=== PATIENT | male | born 1935 | race Hispanic/Latino ===

== ENCOUNTER → 2018-07-26 | Day surgery (SDC) | payer MEDICARE ==
[2018-07-25 10:33] LABS: BASOPHILS % 0.5 % (0.0-1.0); EOSINOPHILS # (AUTO) 0.2 (0.0-0.4); EOSINOPHILS % 3.6 % (0.0-6.0); HEMATOCRIT 26.7 % (38.2-49.6); HEMOGLOBIN 8.6 g/dL (14.0-18.0); LYMPHOCYTES # (AUTO) 1.9 (1.0-3.2); LYMPHOCYTES % 30.2 % (18.0-39.1); MEAN CORPUSCULAR HEMOGLOBIN 29.2 pg (28-32); MEAN CORPUSCULAR HGB CONC 32.2 g/dL (31-35); MEAN CORPUSCULAR VOLUME 90.5 fL (81-99); MONOCYTES # (AUTO) 0.7 (0.2-0.8); MONOCYTES % 10.6 % (4.4-11.3); NEUTROPHILS # (AUTO) 3.3 (2.1-6.9); NEUTROPHILS % 53.8 % (38.7-80.0); PLATELET COUNT 290 x10e3/uL (140-360); RED BLOOD COUNT 2.95 x10e6/uL (4.3-5.7); RED CELL DISTRIBUTION WIDTH 13.6 % (11.7-14.4)
[2018-07-25 10:48] LABS: INR 0.99
[2018-07-25 10:58] LABS: ALBUMIN 3.9 g/dL (3.5-5.0); ANION GAP 12.6 mmol/L (8-16); CALCIUM 9.3 mg/dL (8.4-10.2); CREATININE, SERUM 1.48 mg/dL (0.72-1.25); POTASSIUM 4.6 mmol/L (3.5-5.1)
--- NOTE | 2018-07-25 12:03 | Diagnostic Imaging Report ---
PROCEDURE: Frontal and lateral views of the chest. COMPARISON: None. INDICATIONS: PREOPERATIVE CHEST XRAY FOR HEART CATH FINDINGS: Lines/tubes: None. Lungs: Moderate lung volumes. There is no evidence of pneumonia or pulmonary edema. Mild patchy bibasilar opacities, likely atelectasis. Pleura: There is no pleural effusion or pneumothorax. Heart and mediastinum: Cardiomediastinal silhouette is unremarkable. Bones: No acute bony abnormality. Degenerative changes of the visualized spine. IMPRESSION: No acute radiographic abnormality. Dictated by: KIANNA GUERRERO M.D. on 07/25/2018 at 12:12 Electronically approved by: KIANNA GUERRERO M.D. on 07/25/2018 at 12:12
[2018-07-26] VITALS (10 sets, daily range): BP systolic 98–178; BP diastolic 61–97
[~2018-07-26] VITALS: Ht 165.1 cm; Wt 74.8 kg
[~2018-07-26] MED LIST: ASPIRIN81 MG PO; BYSTOLIC10 MG PO; CLOPIDOGREL75 MG PO; FENTANYL CITRATE/PF 100MCG/2 ML INJ ONE; FERROUS GLUCON240 MG; HEPARIN SOD/SOD CHLORIDE 1,000 ML ONE; HEPARIN SOD/SOD CHLORIDE 2,000 ML ONE; IOPAMIDOL 370 MG/ML 200 ML INFUS..BTL INJ ONE; ISOSORBIDE MONO30 MG PO; LIDOCAINE HCL 1% LOCAL INJ 20 ML VIAL ONE; LISINOPRIL10 MG PO; MIDAZOLAM HCL 2 MG/2 ML VIAL ONE; NITROGLYCERIN0.4 MG SL; OMEPRAZOLE40 MG; SODIUM CHLORIDE 0.9% 1000ML 1,000 ML ONE; SODIUM CHLORIDE 0.9% 500ML 500 ML ONE
--- OUTSIDE RECORDS SUMMARY | 2018-07-26 06:09 | XMS REPORT ---
[facility] Address Unknown Phone Unavailable Care Team Providers Care Home Improvement Installer Name Role Phone DEMARCO ADAM Unavailable Unavailable Problems This patient has no known problems. Allergies, Adverse Reactions, Alerts This patient has no known allergies or adverse reactions. Medications This patient has no known medications. Results Test Description Test Time Test Comments Text Results Atomic Results Result Comments CHEST 2 VIEWS 2018-07-25 12:12:00 [place] [address] Patient Name: JUAN M ANAND MR #: [id number] : 1935 Age/Sex: 82/M Req #: [id number] Adm Physician: Ordered by: DEMARCO ADAM MD Report #: [id number] Location: CORE MANAGER Room/Bed: Procedure: [id number] DX/CHEST 2 VIEWS Exam Date: 07/25/18 Exam Time: 1045 REPORT STATUS: Signed PROCEDURE: Frontal and lateral views of the chest. CO MPARISON: None. INDICATIONS: PREOPERATIVE CHEST XRAY FOR HEART CATH FINDINGS: Lines/tubes: None. Lungs: Moderate lung volumes. There is no evidence of pneumonia or pulmonary edema. Mild patchy bibasilar opacities, likely atelectasis. Pleura: There is no pleural effusion or pneumothorax. Heart and mediastinum: Cardiomediastinal silhouette is unremarkable. Bones: No acute bony abnormality. Degenerative changes of the visualized spine. IMPRESSION: No acute radiographic abnormality. Dictated by: KIANNA GUERRERO M.D. on 07/25/2018 at 12:12 Electronically approved by: KIANNA GUERRERO M.D. on 07/25/2018 at 12:12 Dictated By: KIANNA GUERRERO MD 1212 Transcribed By: RAFI on 07/25/181211 COPY TO: DEMARCO ADAM MD
--- OUTSIDE RECORDS SUMMARY | 2018-07-26 06:09 | XMS REPORT | Summary of Care ---
Author Author [facility] [place] Address Unknown Phone Unavailable Encounter HQ Ryancleopatraalize_clement(FIN) [id number] Date(s): 12/10/17 - 12/10/17 [facility] [place] [address] [place] [address] 7 [phone] Encounter Diagnosis Asymptomatic microscopic hematuria (Final) - 12/16/17 Cyst of kidney, acquired (Final) - Benign prostatic hyperplasia without lower urinary tract symptoms (Final) - Discharge Disposition: Home or Self Care Attending Physician: Dean Steve MD Vital Signs No data available for this section Problem List No data available for this section Allergies, Adverse Reactions, Alerts No data available for this section Medications No data available for this section Results No data available for this section Immunizations No data available for this section Procedures No data available for this section Social History No data available for this section Assessment and Plan No data available for this section
--- OUTSIDE RECORDS SUMMARY | 2018-07-26 06:09 | XMS REPORT | Summary of Care ---
Author Author [facility] Organization [facility] Address Unknown Phone Unavailable Encounter HQ Ryancleopatrar_clement(YONATHAN) [id number] Date(s): 06/11/17 - 06/11/17 [facility] [address] [place] [address]- Discharge Disposition: Home or Self Care Attending Physician: Dean Steve MD Referring Physician: Dean Steve MD Vital Signs No [...]
--- OUTSIDE RECORDS SUMMARY | 2018-07-26 06:09 | XMS REPORT | Continuity of Care Document ---
Author Author [facility] Address Unknown Phone Unavailable Problems Problem Status Onset Date Classification Date Reported Comments Source Asymptomatic microscopic hematuria 12/17/2017 03/18/2018 [facility] [place] M25.562 - PAIN IN LEFT KNEE Active 06/11/2017 [facility] [place] DX: M25.562=PAIN IN LEFT KNEE/M79.662=PA Active 06/11/2017 [place] Cyst of kidney, acquired 03/18/2018 [facility] [place] Benign prostatic hyperplasia without lower urinary tract symptoms 03/18/2018 [facility] [place] PAIN IN LEFT KNEE Active [facility] Medications Medication Details Route Status Patient Instructions Ordering Provider Order Date Source Allergies, Adverse Reactions, Alerts Substance Category Reaction Severity Reaction type Status Date Reported Comments Source Immunizations Immunization Date Given Site Status Last Updated Comments Source Results Order Name Results Value Reference Range Date Interpretation Comments Source Retroperitoneal Complete US Retroperitoneal Complete US EXAM: US RENAL DATE: 12/10/2017 10:44 AM CDT INDICATION: R31.21 Asymptomatic microscopic hematuria COMPARISON: None. TECHNIQUE: Multiplanar grayscale and color Doppler ultrasound of the kidneys and urinary bladder. FINDINGS: Right kidney: Hydronephrosis: None. Size: 9.9 x 5.3 x 4.1 cm. Echogenicity: Normal. Calculi: None. Cysts: None. Masses: None. Left kidney: Hydronephrosis: None. Size: 9.1 x 4.3 x 4.3 cm. Echogenicity: Normal. Calculi: None. Cysts: Subcentimeter exophytic cyst Masses: None. Bladder: Normal. Prostate: Measures approximately 3.8 x 4.0 x 4.6 cm and is moderately heterogeneous. Aorta and IVC: Unremarkable. IMPRESSION: Prostatomegaly. Otherwise no significant abnormality. 12/10/2017 - - Read by: Debbie Mcdaniel Dictated Date/time: 12/10/17 16:34 Electronically Signed by: Debbie Mcdaniel 12/10/17 16:36 FINAL REPORT [facility] Ext Lower Venous Doppler Unilat US Ext Lower Venous Doppler Unilat US Patient Name: JUAN M ANAND : 1935; Age: 81 years y/o Male MR: [id number] Study: Ext Lower Venous Doppler Unilat US 06/11/2017 2:43 PM CDT Ordering Physician: Dean Steve MD Clinical Indication: - left leg pain; Comparison: None Left lower extremity venous Doppler ultrasound exam Normal flow and compressibility of the common femoral, superficial femoral, and popliteal venous segments. Normal distal augmentation. There is a 1.7 x 1.2 cm complex mass in the left popliteal fossa, likely a complex Harris's cyst. IMPRESSION: No evidence for left lower extremity deep vein thrombosis. SL: [id number] 06/11/2017 - - Read by: Richard Bernal MD Dictated Date/time: 06/11/17 16:34 Electronically Signed by: Richard Bernal MD 06/11/17 16:35 FINAL REPORT [facility] Knee 1-2 Views unilateral DX Knee 1-2 Views unilateral DX CLINICAL HISTORY: - left leg pain AGE: 81 years GENDER: Male TECHNIQUE: Left knee radiographs, 2 views. COMPARISON: None FINDINGS: There is no evidence of fracture or dislocation. Osseous mineralization is within normal limits. No lytic or blastic lesions are seen. Severe joint space narrowing is seen in the medial tibiofemoral compartment with subchondral sclerosis. Mild osteophyte formation is seen in the medial tibiofemoral and patellofemoral compartments subchondral sclerosis in the patellofemoral compartment... Small knee joint effusion. 6 mm ossific loose body in the posterior intercondylar notch.. 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 6 mm ossific loose body in the posterior intercondylar notch. Small knee joint effusion. 06/11/2017 - - Read by: Vasiliy Rojas MD Dictated Date/time: 06/11/17 12:54 Electronically Signed by: Vasiliy Rojas MD 06/11/17 12:56 FINAL REPORT [facility] Vital Signs Vital Sign Value Date Comments Source Encounters Location Location Details Encounter Type Encounter Number Reason For Visit Attending Provider ADM Date DC Date Status Source [facility] [place] Out[facility] Di[facility] Services [id number] Souheil Steve 06/11/2017 06/12/2017 [facility] Out[facility] [id number] Souheil Steve 06/11/2017 06/12/2017 [facility] - [place] Outpt Diag Services [id number] Souheil Steve 12/10/2017 12/11/2017 [facility] Procedures Procedure Code Date Perfomer Comments Source
--- OUTSIDE RECORDS SUMMARY | 2018-07-26 06:09 | XMS REPORT | Summary of Care ---
Author Author [facility] [place] Organization [facility] [place] Address Unknown Phone Unavailable Encounter HQ Willier_clement(YONATHAN) [id number] Date(s): 06/11/17 - 06/11/17 [facility] [place] [address] [place] [phone] Discharge Disposition: Home or Self Care Attending [...]
--- NOTE | 2018-07-26 09:48 | Operative Report ---
DATE OF PROCEDURE: July 26, 2018 PROCEDURES PERFORMED 1. Left heart catheterization. 2. Selective coronary angiogram. 3. Left ventriculogram. 4. Intra-aortic balloon placement. INDICATIONS: Chest pain, abnormal stress test. ANESTHESIA: Lidocaine 2% for local anesthesia, fentanyl and Versed for conscious sedation. BLOOD LOSS: 3 mL. DESCRIPTION OF PROCEDURE: After informed consent, the patient was brought to the cardiac catheterization laboratory and placed on the table. Both groins were painted and draped in a sterile fashion. Lidocaine was injected in the right groin for local anesthesia. The right femoral artery was accessed by Seldinger technique and a 5-Tajik sheath was placed in the right femoral artery. The left main artery was cannulated using a JL4.5-Tajik catheter. Coronary angiogram was performed. The images were obtained in multiple views. The right coronary artery was cannulated using a 3DRC 5-Tajik catheter. Coronary angiogram was performed and images were obtained in multiple views. LV gram was performed using a pigtail catheter. Patient had severe left main stenosis. So, it was decided to place an intra-aortic balloon pump. The 5-Tajik sheath was exchanged for a 7-Tajik sheath over a guidewire. Intra-aortic balloon was advanced through the sheath and placed distal to the subclavian artery. The balloon was connected to the console and good inflations were noted. The patient tolerated the procedure without any complications. REPORT LEFT MAIN: Normal caliber with 99% distal lesion. LEFT ANTERIOR DESCENDING: The proximal LAD is of normal caliber. The mid and distal LAD tapers off and has diffuse luminal irregularities. LEFT CIRCUMFLEX: It is of narrow caliber and has diffuse luminal irregularities. RIGHT CORONARY ARTERY: It is of normal caliber, dominant vessel, with20% to 30% mid lesion. LV-GRAM: Hypercontractile left ventricle. Overall ejection fraction is 65% to 70%. HEMODYNAMICS: Aortic pressure is 132/56, LV pressure 134/22, LVEDP is 30. PLAN: CABG. Job#: [id number]
== END | disposition other institution (70) ==
LOC: CATH LAB 06:06
DX: I25.10 Atherosclerotic heart disease of native coronary artery without angina pectoris (principal); R07.9 Chest pain, unspecified; R94.39 Abnormal result of other cardiovascular function study; Z01.810 Encounter for preprocedural cardiovascular examination; Z01.812 Encounter for preprocedural laboratory examination; Z01.811 Encounter for preprocedural respiratory examination
CPT/HCPCS: 33967; 36415; 71046; 80053; 85025; 85610; 85730; 93005; 93458; J2001; J2250; J7030; J7040; Q9967; 33970; C1766; C2630

== ENCOUNTER 2019-02-08 17:05 | Observation (INO) | payer MEDICARE ==
[~2019-02-08] VITALS: Ht 165.1 cm; Wt 80.3 kg
[~2019-02-08 17:05] MED LIST changes: +AMIODARONE HCL200 MG; +ATORVASTATIN CA20 MG PO; -FENTANYL CITRATE/PF 100MCG/2 ML INJ ONE; -FERROUS GLUCON240 MG; +FERROUS GLUCON240 MG PO; +FUROSEMIDE40 MG PO; -HEPARIN SOD/SOD CHLORIDE 1,000 ML ONE; -HEPARIN SOD/SOD CHLORIDE 2,000 ML ONE; -IOPAMIDOL 370 MG/ML 200 ML INFUS..BTL INJ ONE; +IRON; -LIDOCAINE HCL 1% LOCAL INJ 20 ML VIAL ONE; +METOPROLOL PO; -MIDAZOLAM HCL 2 MG/2 ML VIAL ONE; -OMEPRAZOLE40 MG; +OMEPRAZOLE40 MG PO; -SODIUM CHLORIDE 0.9% 1000ML 1,000 ML ONE; -SODIUM CHLORIDE 0.9% 500ML 500 ML ONE; +VITAMIN D400 UNIT PO
[2019-02-08 22:03] LABS: BASOPHILS % 0.5 % (0.0-1.0); EOSINOPHILS # (AUTO) 0.3 (0.0-0.4); EOSINOPHILS % 3.8 % (0.0-6.0); HEMATOCRIT 27.7 % (38.2-49.6); HEMOGLOBIN 8.8 g/dL (14.0-18.0); LYMPHOCYTES # (AUTO) 2.6 (1.0-3.2); LYMPHOCYTES % 38.9 % (18.0-39.1); MEAN CORPUSCULAR HEMOGLOBIN 26.5 pg (28-32); MEAN CORPUSCULAR HGB CONC 31.8 g/dL (31-35); MEAN CORPUSCULAR VOLUME 83.4 fL (81-99); MONOCYTES # (AUTO) 0.6 (0.2-0.8); MONOCYTES % 8.6 % (4.4-11.3); NEUTROPHILS # (AUTO) 3.2 (2.1-6.9); NEUTROPHILS % 47.6 % (38.7-80.0); PLATELET COUNT 210 x10e3/uL (140-360); RED BLOOD COUNT 3.32 x10e6/uL (4.3-5.7)
[2019-02-08 22:25] LABS: CALCIUM 10.4 mg/dL (8.4-10.2); CREATININE, SERUM 2.28 mg/dL (0.72-1.25)
[2019-02-08 22:55] LABS: INR 0.95; PROTHROMBIN TIME 13.2 seconds (11.9-14.5)
[2019-02-08 22:56] LABS: PARTIAL THROMBOPLASTIN TIME 27.2 seconds (23.8-35.5)
[2019-02-09] MEDS ORDERED: PANTOPRAZOLE 40 MG 10ML VIAL IV ONE (00:30)
[2019-02-09] MEDS: SODIUM CHLORIDE 0.9% 1000ML 1,000 ML IV SCH ×2 (00:46→20:07)
[2019-02-09 00:55] LABS: HEMOGLOBIN 7.4 g/dL (14.0-18.0)
[2019-02-09] MEDS ORDERED: SODIUM CHLORIDE 0.9% 250ML 250 ML IV ONE (01:00)
--- NOTE | 2019-02-09 01:11 | NUR ---
spoke to dr joshi regarding patients drop in hemoglobin to 7.4 and hematocrit of 23, informed md that patients blood antibody screen came back positive and is being sent to [facility], informed of protonix administration, asked md if she wished to add any new orders, md stated no furthe orders at this time.
--- NOTE | 2019-02-09 01:16 | NUR ---
informed walt -warehouse laborer- of blood orders. walt stated the blood is currently being processed
[2019-02-09 05:51] LABS: HEMATOCRIT 20.4 % (38.2-49.6)
[2019-02-09 05:53] LABS: HEMOGLOBIN 6.5 g/dL (14.0-18.0)
--- NOTE | 2019-02-09 06:09 | NUR ---
H&P cc; BRBPR HPI: 83yoM, PCP pt does not recall, with hx GIB, developed weakness, found to have severe anemia. Pt admits to having rectal bleeding for over 2 weeks; managed by his PCP. unknown if hemorrhoids. 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
--- NOTE | 2019-02-09 06:36 | NUR ---
dr leland root at 0607 and 06, responded at 06, informed her of hemoglobin of 6.5 and hematocrit of 20.4, informed her rosette from lab informed me blood is in route from [facility], informed of vital signs, patient is in no distress. no further orders at this time, give blood as soon as it arrives to facility
[2019-02-09] MEDS ORDERED: FUROSEMIDE INJ 10 MG/ML 2 ML VIAL IV PRN (07:00)
[2019-02-09] MEDS ORDERED: SODIUM CHLORIDE 0.9% 250ML 250 ML IV NR (07:00)
--- NOTE | 2019-02-09 07:07 | NUR ---
report given in full to dino begum
[2019-02-09] MEDS: AMIODARONE HCL 200 MG TAB PO SCH (08:53)
[2019-02-09] MEDS: ISOSORBIDE MONONITRATE 30 MG TAB CR PO SCH (09:36)
[2019-02-09 12:45] LABS: HEMATOCRIT 23.7 % (38.2-49.6); HEMOGLOBIN 7.7 g/dL (14.0-18.0)
--- NOTE | 2019-02-09 15:11 | NUR ---
Received patient from PACU via stretcher. Accompanied by . AAOX3 to time, person, place. Respirations even and unlabored. Tele #[phone] 1st degree block.Denies pain. Oriented patient and to room. Instructed to use call light for assistance. Voiced understanding. Will continue to monitor.
[2019-02-09 15:24] VITALS: BP 144/65
[2019-02-09] MEDS ORDERED: VITAMIN C500 M1 PO (15:28)
[2019-02-09 15:36] VITALS: BP 144/65
--- NOTE | 2019-02-09 15:51 | NUR ---
aware patient received 1 unit PRBC before going to procedure. HGB 7.7 at noon. Per give second unit of PRBC. Aware of med rec to be reviewed.
[2019-02-09 16:26] VITALS: BP 144/65
--- NOTE | 2019-02-09 19:02 | NUR ---
Report given to oncoming nurse of patient's status. at bedside. No s/s of acute distress noted.
--- NOTE | 2019-02-09 19:10 | NUR ---
pt received. pt assessed. no ss of distress noted. no co pain at time. tele in place. blood transfusing at time. right forearm swollen. iv dc'd catheter tip intact, drsg applied to site. will cont to follow poc. call kiser within reach.
[2019-02-09] MEDS ORDERED: PROPOFOL IV EMULSION 10 MG/ML 50 ML VIAL ONE (19:24)
--- NOTE | 2019-02-09 19:36 | NUR ---
blood transfusion complete. no ss of distress or reaction noted. call kiser within reach.
[2019-02-09 20:00] VITALS: BP 130/63
[2019-02-09] MEDS ORDERED: ATORVASTATIN 20 MG TAB PO SCH (21:00)
--- NOTE | 2019-02-09 23:30 | NUR ---
blood drawn and sent to lab at time per orders. pt tolerated well. call kiser within reach.
[2019-02-09 23:41] LABS: HEMATOCRIT 25.6 % (38.2-49.6); HEMOGLOBIN 8.1 g/dL (14.0-18.0)
[2019-02-10] VITALS: BP 125/60
[2019-02-10] MEDS: SODIUM CHLORIDE 0.9% 1000ML 1,000 ML IV SCH (02:47)
[2019-02-10 04:00] VITALS: BP 108/69
--- NOTE | 2019-02-10 04:15 | NUR ---
pt resting. no ss of distress noted. call kiser within reach.
[2019-02-10 05:23] LABS: HEMATOCRIT 24.5 % (38.2-49.6); HEMOGLOBIN 8.1 g/dL (14.0-18.0)
[2019-02-10 08:00] VITALS: BP 114/57
[2019-02-10 08:14] VITALS: BP 114/57
[2019-02-10] MEDS: AMIODARONE HCL 200 MG TAB PO SCH (09:00)
[2019-02-10] MEDS ORDERED: PANTOPRAZOLE 40 MG 10ML VIAL IV SCH (09:00)
[2019-02-10] MEDS: ISOSORBIDE MONONITRATE 30 MG TAB CR PO SCH (09:00)
[2019-02-10 09:15] VITALS: BP 114/57
--- NOTE | 2019-02-10 10:18 | Consultation ---
DATE OF CONSULTATION: 02/09/2019 CHIEF COMPLAINT: GI bleeding. HISTORY OF PRESENT ILLNESS: Very pleasant 83-year-old man, comes with anemia. Hemoglobin was 7 and blood in stool. He is here for colonoscopy and EGD. PAST MEDICAL HISTORY: See old records. FAMILY HISTORY: Noncontributory. MEDICATIONS: See list. ALLERGIES: NONE SIGNIFICANT. SOCIAL HISTORY: Lives at home. He is retired. No toxic habits. PHYSICAL EXAMINATION: VITAL SIGNS: Blood pressure 140/80, pulse 70, and temperature 98. GENERAL: Elderly man. He looks pale. HEART: Regular rate. LUNGS: Clear. ABDOMEN: Soft, nontender. EXTREMITIES: No edema. ASESSMENT AND PLAN: Gastrointestinal bleed, chronic. The patient is getting transfused, schedule colonoscopy and esophagogastroduodenoscopy today. MD EMEKA HubbardO/MODL /[id number]
--- NOTE | 2019-02-10 10:52 | NUR ---
Discharge summary: Principal dX: Severe anemia Dehydration Hypercalcemia Internal hemorrhoids gastritis Hiatal hernia Secondary Dx: Hx GIB CKD3 Hypercalcemia Obesity BMI 30 PAF HLD Systolic murmur FOrmer smoker PLAN blood transfusion IV ppi; gi consult ferrous sulfate scd/ppi dispo; f/u gi recs endoscopy revealed large hemorrhoids, gastritis, HH.; pt can be safely d/c home with f/u. avoid asa or blood thinners. Pt actually has CKD3 as seen in 2018. d/c home f/u pcp 1 week and GI 2 weeks stable d/c>35mins Dav Little MD, PhD.
[2019-02-10 11:08] LABS: BASOPHILS % 0.3 % (0.0-1.0); EOSINOPHILS # (AUTO) 0.3 (0.0-0.4); EOSINOPHILS % 3.9 % (0.0-6.0); HEMATOCRIT 28.7 % (38.2-49.6); HEMOGLOBIN 9.3 g/dL (14.0-18.0); LYMPHOCYTES # (AUTO) 1.3 (1.0-3.2); LYMPHOCYTES % 18.2 % (18.0-39.1); MEAN CORPUSCULAR HEMOGLOBIN 26.6 pg (28-32); MEAN CORPUSCULAR HGB CONC 32.4 g/dL (31-35); MEAN CORPUSCULAR VOLUME 82.2 fL (81-99); MONOCYTES # (AUTO) 0.6 (0.2-0.8); MONOCYTES % 9.2 % (4.4-11.3); NEUTROPHILS # (AUTO) 4.7 (2.1-6.9); NEUTROPHILS % 67.8 % (38.7-80.0); PLATELET COUNT 197 x10e3/uL (140-360); RED BLOOD COUNT 3.49 x10e6/uL (4.3-5.7); RED CELL DISTRIBUTION WIDTH 23.1 % (11.7-14.4)
[2019-02-10 11:22] LABS: ANION GAP 12.5 mmol/L (8-16); CALCIUM 9.4 mg/dL (8.4-10.2); CREATININE, SERUM 1.76 mg/dL (0.72-1.25); POTASSIUM 4.5 mmol/L (3.5-5.1)
--- NOTE | 2019-02-10 11:54 | NUR ---
PAGED DR ORTIZ AND NOTIFIED LAB REPORT HE SAID HE COMING TO SEE THE PT
[2019-02-10 12:31] VITALS: BP 146/65
[2019-02-10] MEDS ORDERED: ANUSOL-HC25 MG RC (13:42)
[2019-02-10] MEDS ORDERED: PANTOPRAZOLE SO40 MG PO (13:42)
[2019-02-10] MEDS ORDERED: SENNA LAXATIVE8.6 MG PO (13:43)
--- NOTE | 2019-02-10 14:47 | NUR ---
PT WENT HOME IN SAFE CONDITION WITH HIS
== END 2019-02-10 14:47 | disposition home or self-care (01) ==
LOC: ER 17:05 → ERHOLD 02-09 00:15 → INTOOBSV 02-09 00:15 → MED/SURG2 02-09 14:19
PROVIDERS: ADMIT Internal Medicine; ATTEND Internal Medicine
DX: K92.1 Melena (principal); D62 Acute posthemorrhagic anemia; I50.9 Heart failure, unspecified; E78.5 Hyperlipidemia, unspecified; I25.10 Atherosclerotic heart disease of native coronary artery without angina pectoris; Z95.1 Presence of aortocoronary bypass graft; Z82.49 Family history of ischemic heart disease and other diseases of the circulatory system; Z96.651 Presence of right artificial knee joint; K57.30 Diverticulosis of large intestine without perforation or abscess without bleeding; K64.8 Other hemorrhoids; Z87.891 Personal history of nicotine dependence; N17.9 Acute kidney failure, unspecified; E83.52 Hypercalcemia; E66.9 Obesity, unspecified; Z68.30 Body mass index [BMI] 30.0-30.9, adult; K29.70 Gastritis, unspecified, without bleeding; K44.9 Diaphragmatic hernia without obstruction or gangrene; I13.0 Hypertensive heart and chronic kidney disease with heart failure and stage 1 through stage 4 chronic kidney disease, or unspecified chronic kidney disease; N18.3 Chronic kidney disease, stage 3 (moderate)
CPT/HCPCS: 36415 ×3; 36430; 43239; 45378; 80048; 80053; 85014 ×2; 85018 ×2; 85025 ×2; 85610; 85730; 86850; 86870; 86880; 86900; 86905; 86920; 86922; 88305; 88312; 93005; 96374; 96376; 99001; C9113 ×2; G0378 ×2; J1940; J2704; J7030; J7050; P9016

== ENCOUNTER 2021-07-17 11:16 | Emergency (ER) | payer MEDICARE ==
[~2021-07-17] VITALS: Ht 165.1 cm; Wt 80.3 kg
[~2021-07-17 11:16] MED LIST changes: +ANUSOL-HC25 MG RC; +PANTOPRAZOLE SO40 MG PO; +SENNA LAXATIVE8.6 MG PO; +VITAMIN C500 M1 PO
[2021-07-17 12:00] LABS: BASOPHILS % 0.3 % (0.0-1.0); EOSINOPHILS # (AUTO) 0.2 (0.0-0.4); EOSINOPHILS % 3.2 % (0.0-6.0); HEMATOCRIT 33.8 % (38.2-49.6); LYMPHOCYTES # (AUTO) 1.3 (1.0-3.2); LYMPHOCYTES % 21.5 % (18.0-39.1); MEAN CORPUSCULAR HEMOGLOBIN 30.4 pg (28-32); MEAN CORPUSCULAR HGB CONC 32.5 g/dL (31-35); MEAN CORPUSCULAR VOLUME 93.4 fL (81-99); MONOCYTES # (AUTO) 0.6 (0.2-0.8); MONOCYTES % 10.2 % (4.4-11.3); NEUTROPHILS # (AUTO) 3.9 (2.1-6.9); NEUTROPHILS % 64.6 % (38.7-80.0); PLATELET COUNT 182 x10e3/uL (140-360); RED BLOOD COUNT 3.62 x10e6/uL (4.3-5.7); RED CELL DISTRIBUTION WIDTH 13.7 % (11.7-14.4)
[2021-07-17 12:22] LABS: INR 1.04
[2021-07-17 12:23] LABS: PARTIAL THROMBOPLASTIN TIME 28.8 seconds (23.8-35.5)
[2021-07-17 12:31] LABS: ALBUMIN 3.6 g/dL (3.5-5.0); CALCIUM 8.8 mg/dL (8.4-10.2); CREATININE, SERUM 1.56 mg/dL (0.72-1.25)
[2021-07-17] MEDS ORDERED: SODIUM CHLORIDE 0.9% 1000ML 1,000 ML IV STA (12:36)
[2021-07-17 12:39] LABS: CREATINE KINASE MB 2.5 ng/mL (0-5.0)
[2021-07-17] MEDS ORDERED: SODIUM CHLORIDE 0.9% 100 ML ONE (12:49)
[2021-07-17] MEDS ORDERED: IOPAMIDOL 370 MG/ML 200 ML INFUS..BTL INJ ONE (12:49)
[2021-07-17] MEDS ORDERED: SODIUM CHLORIDE 0.9% 50ML 0 ML ONE (12:49)
[2021-07-17 13:20] LABS: AMPHETAMINES SCREEN,URINE NEGATIVE (NEGATIVE); BENZODIAZEPINES SCREEN,URINE NEGATIVE (NEGATIVE); CLARITY,URINE CLEAR (CLEAR); COLOR,URINE YELLOW (YELLOW); KETONES,URINE NEGATIVE (NEGATIVE); LEUKOCYTE ESTERASE ,URINE NEGATIVE (NEGATIVE); NITRITE,URINE NEGATIVE (NEGATIVE); PHENCYCLIDINE SCREEN,URINE NEGATIVE (NEGATIVE); PROTEIN,URINE DIPSTICK NEGATIVE (NEGATIVE); URINE UROBILINOGEN 0.2 mg/dL (0.2 - 1)
[2021-07-17 13:31] LABS: RBC,URINE 0-5 /HPF (0-5); WBC,URINE (MAN) 0-5 /HPF (0-5)
[2021-07-17] MEDS ORDERED: ASPIRIN 325 MG TAB PO ONE (15:15)
== END 2021-07-17 15:20 | disposition home or self-care (01) ==
LOC: ER 11:35
DX: R47.81 Slurred speech (principal); I10 Essential (primary) hypertension; E78.5 Hyperlipidemia, unspecified; I25.10 Atherosclerotic heart disease of native coronary artery without angina pectoris; I50.9 Heart failure, unspecified; R25.1 Tremor, unspecified; Z95.1 Presence of aortocoronary bypass graft
CPT/HCPCS: 36415; 70496; 70498; 80053; 80307; 81001; 82550; 82553; 84484; 85025; 85610; 85730; 93005; 99284; J7030; J7050; Q9967